=== PATIENT | female | born 1960 | race Caucasian/White ===

== ENCOUNTER 2016-09-27 09:54 | Emergency (ER) | payer OTHER, MEDICAID ==
[~2016-09-27] VITALS: Ht 152.4 cm; Wt 86.2 kg
[~2016-09-27 09:54] MED LIST: CRESTOR10 MG PO; DYAZIDE 37.5-21 EACH PO; ESTRACE1 MG PO; ESTRADIOL 1 MG T1 M1 PO; FLEXERIL PO; HCTZ; HYDROCHLOROTHIA25 M1 PO; IBUPROFEN 400400 M2 PO; IBUPROFEN 600600 M1 PO; IBUPROFEN 800800 M1 PO; IBUPROFEN 800800 MG PO; LOPRESSOR PO; MAXZIDE-25 TABL1 TA1 PO; MULTIVITAMINS1 EAC7 PO; NAPROSYN500 MG PO; NORCO 5-325 TA1 EACH PO; NORFLEX100 MG PO; PERCOCET 5-3251 EACH PO; TOPROL XL25 MG PO; TRAMADOL 50 MG50 MG PO; ULTRAM 50MG TAB50 MG PO; ULTRAM ER100 MG PO; VALIUM2 MG PO; VICODIN 5-5001 EACH PO
[2016-09-27] MEDS ORDERED: TRAMADOL 50 MG50 MG PO (10:28)
[2016-09-27] MEDS ORDERED: NORFLEX100 MG PO (10:28)
[2016-09-27] MEDS ORDERED: NAPROSYN500 MG PO (10:28)
[2016-09-27] MEDS ORDERED: PREDNISONE 10 M10 MG PO (10:31)
[2016-09-27 10:50] VITALS: BP 149/92
== END 2016-09-27 10:55 | disposition home or self-care (01) ==
LOC: ER 09:54
DX: M54.6 Pain in thoracic spine (principal); G89.29 Other chronic pain; I10 Essential (primary) hypertension; E78.00 Pure hypercholesterolemia, unspecified; F10.99 Alcohol use, unspecified with unspecified alcohol-induced disorder; Z98.890 Other specified postprocedural states; Z88.6 Allergy status to analgesic agent; Z88.1 Allergy status to other antibiotic agents; Z88.8 Allergy status to other drugs, medicaments and biological substances